=== PATIENT | female | born 1945 | race Caucasian/White ===

== ENCOUNTER → 2016-10-24 | Outpatient (CLI) | payer MEDICARE, OTHER ==
[~2016-10-24] MED LIST: CIPR500T4 PO; ENAL10TA7 PO; FLAG500T PO; JANU100T PO; LEVA500T PO; ULTR50TA PO; ZOFR4TAB3 SL
[2016-10-24 13:37] LABS: HEMATOCRIT 36.4 % (35.0-46.0); MEAN CELL VOLUME 78.6 FL (80.0-100.0); MEAN CORPUSCULAR HEMOGLOBIN 26.6 PG (27.0-34.0); MEAN CORPUSCULAR HGB CONC 33.8 % (32.0-36.0); PLATELET COUNT 184 TH/MM3 (150-450); RED BLOOD COUNT 4.64 MIL/MM3 (4.00-5.30); RED CELL DISTRIBUTION WIDTH 14.7 % (11.6-17.2); REVIEW FLAG FINAL; WHITE BLOOD COUNT 2.9 TH/MM3 (4.0-11.0)
[2016-10-24 14:08] LABS: WESTERGREN SEDIMENTATION RATE 38 mm/hr (0-30)
[2016-10-24 14:09] LABS: ALKALINE PHOSPHATASE 94 U/L (45-117); ALT (GPT) 25 U/L (10-53); ANION GAP 7 MEQ/L (5-15); AST (GOT) 17 U/L (15-37); BICARBONATE 29.6 MEQ/L (21.0-32.0); BLOOD UREA NITROGEN 7 MG/DL (7-18); CHLORIDE 104 MEQ/L (98-107); GLOMERULAR FILTRATION RATE 65 ML/MIN (>89); POTASSIUM 3.8 MEQ/L (3.5-5.1); SODIUM (NA) 141 MEQ/L (136-145); TOTAL BILIRUBIN ADULT 0.4 MG/DL (0.2-1.0)
== END ==
LOC: PLAB 09:51
PROVIDERS: ATTEND Internal Medicine Rheumatology
DX: L40.59 Other psoriatic arthropathy (principal); Z79.899 Other long term (current) drug therapy
CPT/HCPCS: 36415; 80053; 85027; 85652; 86140

== ENCOUNTER → 2016-10-28 | Outpatient (CLI) | payer MEDICARE, OTHER ==
[2016-10-30 16:49] LABS: MITOGEN MINUS NIL RESULT >10.00 IU/mL (()); NIL RESULT 0.07 IU/mL (()); QUANTIFERON TB GOLD RESULT Negative (Negative)
== END ==
LOC: PLAB 11:03
PROVIDERS: ATTEND Internal Medicine Rheumatology
DX: L40.59 Other psoriatic arthropathy (principal)
CPT/HCPCS: 36415; 86480

== ENCOUNTER → 2016-12-03 | Outpatient (CLI) | payer MEDICARE, OTHER ==
[2016-12-03 17:50] LABS: BLOOD, URINE NEG (NEG); GLUCOSE,URINE NEG (NEG); KETONE, URINE NEG (NEG); MUCUS URINE FEW /lpf (OCC); PH, URINE 6.5 (5.0-8.5); SQUAMOUS EPITHELIAL CELL URINE 2 /hpf (0-5); URINE COLOR YELLOW (YELLW/STRAW)
[2016-12-03 17:59] LABS: NITRITE,URINE POS (NEG)
== END ==
LOC: PLAB 13:23
DX: N39.0 Urinary tract infection, site not specified (principal); B96.1 Klebsiella pneumoniae [K. pneumoniae] as the cause of diseases classified elsewhere
CPT/HCPCS: 81001; 87077; 87086; 87186

== ENCOUNTER 2017-07-17 12:44 | Emergency (ER) | payer MEDICARE, OTHER ==
[2017-07-17 12:52] VITALS: BP 178/82; PULSE 89; RESP 18; TEMP 99.2; O2SAT 98
[2017-07-17] MEDS ORDERED: NEXI40CA PO (13:27)
[2017-07-17] MEDS ORDERED: METO1TAB42 PO (13:27)
[2017-07-17] MEDS ORDERED: POTA10CA PO (13:27)
[2017-07-17] MEDS ORDERED: ENBR50IN2 SQ (13:27)
[2017-07-17] MEDS ORDERED: HYDR25TA5 PO (13:27)
[2017-07-17] MEDS ORDERED: FURO1TAB60 PO (13:27)
[2017-07-17] MEDS ORDERED: AMLO10TA2 PO (13:27)
[2017-07-17] MEDS ORDERED: TIZA4CAP3 PO (13:27)
[2017-07-17] MEDS ORDERED: SITA1TAB2 PO (13:27)
[2017-07-17] MEDS ORDERED: ENAL20TA PO (13:27)
[2017-07-17] MEDS ORDERED: cloNIDine HCL 0.2 MG TAB PO ONE (13:30)
--- NOTE | 2017-07-17 13:59 | PD ---
HPI Chief Complaint: Cardiac Complaint Time Seen by Provider: 13:07 Travel History International Travel<30 days: No Contact w/Intl Traveler<30days: No Traveled to known affect area: No History of Present Illness HPI The patient was seen and examined in the presence of the nurse. This patient was advised to come here because her blood pressure is running high. She has long-standing history of many years of chronic hypertension. Blood pressures are often elevated. She takes several different medications. She follows with her mechanical assembly technician for blood pressure management. He is not having headache or chest pain or presyncopal symptoms. She often gets flushed in the face when her blood pressure is elevated. Currently 181/88. Symptoms severity is mild. 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 ) Cancer: No Cardiovascular Problems: No Diabetes: Yes Patient Takes Glucophage: No Diminished Hearing: No Diverticulitis: Yes Endocrine: No Gastrointestinal Disorders: Yes (GERD) GERD: Yes Genitourinary: Yes (FREQUENT UTI) Hepatitis: No Hiatal Hernia: No Hypertension: Yes Immune Disorder: No Medical other: Yes (SPLEEN ANERURYSM) Musculoskeletal: Yes (WEAK BONES) Neurologic: No Psychiatric: No Reproductive: No Respiratory: No Immunizations Current: Yes Thyroid Disease: Yes ?: Not Tubal Ligation: Yes Past Surgical History Abdominal Surgery: Yes (BLADDER SLING) Cardiac Surgery: No Cholecystectomy: Yes Ear Surgery: No Endocrine Surgery: No Eye Surgery: No Genitourinary Surgery: Yes (BLADDER SLING) Gynecologic Surgery: No Hysterectomy: Yes Joint Replacement: Yes (LEFT KNEE REPLACMENT) Neurologic Surgery: No Oral Surgery: No Pacemaker: No Thoracic Surgery: No Other Surgery: Yes (, RIGHT ROTATOR CUFF REPAIR IN NOVEMBER 2014) Social History Alcohol Use: No Tobacco Use: No (QUIT 1996) Substance Use: No Allergies-Medications (Allergen,Severity, Reaction): Coded Allergies: acetaminophen (Unverified Allergy, Severe, Nausea/Vomiting, 07/17/17) codeine (Unverified Allergy, Severe, RASH, 07/17/17) hydrocodone (Unverified Allergy, Severe, Nausea/Vomiting, 07/17/17) Reported Meds & Prescriptions Reported Meds & Active Scripts Active Reported Enbrel PF Inj (Etanercept) 50 mg/ml Syr 50 Mg SQ Q7D Amlodipine (Amlodipine Besylate) 10 Mg Tab 10 Mg PO DAILY Metoprolol Succinate ER 24 HR (Metoprolol Succinate) 25 Mg Tab 25 Mg PO DAILY Tizanidine (Tizanidine HCl) 4 Mg Cap 4 Mg PO HS Enalapril (Enalapril Maleate) 20 Mg Tab 20 Mg PO BID Nexium (Esomeprazole DR) 40 Mg Capdr 40 Mg PO DAILY Januvia (Sitagliptin Phosphate) 100 Mg Tab 100 Mg PO DAILY Potassium Chloride ER (Potassium Chloride) 10 Meq Cap 10 Meq PO DAILY Hydrochlorothiazide 25 Mg Tab 25 Mg PO DAILY Lasix (Furosemide) 40 Mg Tab 40 Mg PO DAILY Review of Systems General / Constitutional: No: Fever Eyes: No: Visual changes HENT: No: Headaches Cardiovascular: No: Chest Pain or Discomfort Respiratory: No: Shortness of Breath Gastrointestinal: No: Abdominal Pain Genitourinary: No: Dysuria Musculoskeletal: No: Pain Skin: No Rash Neurologic: No: Weakness Psychiatric: No: Depression Endocrine: No: Polydipsia Hematologic/Lymphatic: No: Easy Bruising Physical Exam Narrative GENERAL: Well-nourished, well-developed patient in no apparent distress. SKIN: Focused skin assessment reveals no rash and nodules. Skin is Warm and dry. HEAD: Atraumatic. Normocephalic. EYES: Pupils equal and round. No scleral icterus. No injection or drainage. ENT: No nasal bleeding or discharge. Mucous membranes pink and moist. Some facial flushing noted NECK: Trachea midline. No JVD. CARDIOVASCULAR: Regular rate and rhythm. No murmur appreciated. RESPIRATORY: No accessory muscle use. Clear to auscultation. Breath sounds equal bilaterally. GASTROINTESTINAL: Abdomen soft, non-tender, nondistended. Hepatic and splenic margins not palpable. MUSCULOSKELETAL: No obvious deformities. No clubbing. No cyanosis. No edema. NEUROLOGICAL: Awake and alert. No obvious cranial nerve deficits. Motor grossly within normal limits. Normal speech. PSYCHIATRIC: Appropriate mood and affect; insight and judgment normal. Data Data Last Documented VS Vital Signs Date Time Temp Pulse Resp B/P (MAP) Pulse Ox O2 Delivery O2 Flow Rate FiO2 07/17/17 12:52 99.2 89 18 178/82 (114) 98 Orders Orders Clonidine (Catapres) (07/17/17 13:30) [facility] Medical Decision Making Medical Screen Exam Complete: Yes Emergency Medical Condition: Yes Medical Record Reviewed: Yes Differential Diagnosis Accelerated hypertension, hypertensive urgency, essential hypertension Narrative Course I have reviewed the patient's electronic medical record. Patient is neurologically intact without acute symptoms I gave her dose of clonidine She should check and record her blood pressure daily She can double her metoprolol as she is on a low-dose of 25 daily Should discuss medication changes with her physician Diagnosis Primary Impression: Accelerated hypertension Additional Instructions: The patient was advised to follow up with their physician and return if they worsen. Check and record blood pressure daily Med/Other Pt SpecificInfo: Other Disposition: 01 DISCHARGE HOME Condition: Stable Obdulio Muse MD Jul 17, 2017 13:59
--- NOTE | 2017-07-19 11:12 | EKG ---
Date Performed: 07/17/2017 Time Performed: 13:03:23 PTAGE: 72 years EKG: Sinus rhythm NORMAL ECG PREVIOUS TRACING : 05/15/2014 05.29 Consider inferior ischemia vs. due to baseline wandering ar tifact DOCTOR: Mani Mane Interpretating Date/Time 07/19/2017 11:11:24
== END 2017-07-17 14:15 | disposition home or self-care (01) ==
LOC: PHED 12:44
DX: I10 Essential (primary) hypertension (principal); E11.9 Type 2 diabetes mellitus without complications; Z79.84 Long term (current) use of oral hypoglycemic drugs; Z87.891 Personal history of nicotine dependence
CPT/HCPCS: 93005; 99283

== ENCOUNTER → 2017-08-18 | Outpatient (CLI) | payer MEDICARE, OTHER ==
[~2017-08-18] MED LIST changes: +AMLO10TA2 PO; -CIPR500T4 PO; -ENAL10TA7 PO; +ENAL20TA PO; +ENBR50IN2 SQ; -FLAG500T PO; +FURO1TAB60 PO; +HYDR25TA5 PO; -JANU100T PO; -LEVA500T PO; +METO1TAB42 PO; +NEXI40CA PO; +POTA10CA PO; +SITA1TAB2 PO; +TIZA4CAP3 PO; -ULTR50TA PO; -ZOFR4TAB3 SL
[2017-08-18 14:10] LABS: BICARBONATE 30.9 MEQ/L (21.0-32.0); POTASSIUM 4.1 MEQ/L (3.5-5.1)
== END ==
LOC: PLAB 09:42
PROVIDERS: ATTEND Nuclear Medicine Nuclear Cardiology
DX: R60.9 Edema, unspecified (principal); I11.9 Hypertensive heart disease without heart failure
CPT/HCPCS: 36415; 80048; 83880